=== PATIENT | female | born 1955 | race Caucasian/White ===

== ENCOUNTER 2019-02-14 18:40 | Emergency (ER) | payer OTHER ==
[~2019-02-14] VITALS: Wt 86.4 kg
[2019-02-14] MEDS ORDERED: SOD CHLORIDE 0.9% 1,000 ML IV STA (20:29)
[2019-02-14] MEDS ORDERED: ONDANSETRON 4 MG INJ IV STA (20:35)
[2019-02-14] MEDS ORDERED: morphine 4 MG/ML VIAL IV STA (20:35)
[2019-02-14] MEDS ORDERED: LOPE2CAP PO (23:06)
[2019-02-14] MEDS ORDERED: CIPR500T4 PO (23:06)
[2019-02-14 23:15] VITALS: BP 119/76; PULSE 80; RESP 20
--- NOTE | 2019-02-14 23:34 | ERD ---
ER Documentation Chief Complaint Chief Complaint DIARRHEA [id number] GENERALIZED WEAKNESS/DIZZINESS HPI Patient is a 63-year-old female with hypertension who presents for diarrhea. The patient was sent by Dr. Jess Kevin for diarrhea for the past 2 weeks. The patient is felt dizzy as well. The patient has diffuse abdominal pain which comes and goes. The patient has no fevers and no vomiting. The patient has had no recent travel. Upon review of old medical records this is the patient's first visit to the emergency department. ROS All systems reviewed and are negative except as per history of present illness. Medications Home Meds Active Scripts Loperamide Hcl* (Imodium*) 2 Mg Capsule, 2 MG PO .AFTER EA LOOSE BM PRN for DIARRHEA, #10 TAB Prov:LILIA GARCIA MD 02/14/19 Ciprofloxacin Hcl* (Ciprofloxacin Hcl*) 500 Mg Tablet, 500 MG PO BID for 7 Days, TAB Prov:LILIA GARCIA MD 02/14/19 Allergies Allergies: Coded Allergies: No Known Allergy (Unverified , 02/14/19) PMhx/Soc History of Surgery: Yes (, bilateral hands, bilateral knees) Hx Neurological Disorder: Yes (alzheimer's) Hx Cardiac Disorders: Yes (htn) Hx Miscellaneous Medical Probl: Yes (depression, anxiety) Hx Alcohol Use: No Hx Substance Use: No Hx Tobacco Use: No Smoking Status: Never smoker FmHx Family History: No diabetes Physical Exam Vitals Vital Signs Date Temp Pulse Resp B/P (MAP) Pulse Ox O2 O2 Flow FiO2 Time Delivery Rate 02/14/19 80 20 119/76 98 Room Air 23:15 (90) 02/14/19 97.7 55 20 126/73 96 19:01 (90) Physical Exam Const: No acute distress Head: Atraumatic Eyes: Normal Conjunctiva ENT: Normal External Ears, Nose and Mouth. Neck: Full range of motion. No meningismus. Resp: Clear to auscultation bilaterally Cardio: Regular rate and rhythm, no murmurs Abd: Soft, diffuse tenderness to palpation without rebound or guarding Skin: No petechiae or rashes Back: No midline or flank tenderness Ext: No cyanosis, or edema Neur: Awake and alert Psych: Normal Mood and Affect Result Diagram: 02/14/19203802/14/192038 Results 24 hrs Laboratory Tests Test 02/14/19 20:39 02/14/19 20:51 White Blood Count 7.3 10^3/ul Red Blood Count 4.39 10^6/ul Hemoglobin 13.0 g/dl Hematocrit 40.2 % Mean Corpuscular Volume 91.6 fl Mean Corpuscular Hemoglobin 29.6 pg Mean Corpuscular Hemoglobin Concent 32.3 g/dl Red Cell Distribution Width 12.4 % Platelet Count 250 10^3/UL Mean Platelet Volume 10.7 fl Immature Granulocytes % 0.300 % Neutrophils % 56.7 % Lymphocytes % 36.0 % Monocytes % 5.9 % Eosinophils % 1.0 % Basophils % 0.1 % Nucleated Red Blood Cells % 0.0 /100WBC Immature Granulocytes # 0.020 10^3/ul Neutrophils # 4.2 10^3/ul Lymphocytes # 2.6 10^3/ul Monocytes # 0.4 10^3/ul Eosinophils # 0.1 10^3/ul Basophils # 0.0 10^3/ul Nucleated Red Blood Cells # 0.0 10^3/ul Sodium Level 141 mmol/L Potassium Level 3.9 mmol/L Chloride Level 107 mmol/L Carbon Dioxide Level 29 mmol/L Anion Gap 5 Blood Urea Nitrogen 19 mg/dl Creatinine 0.73 mg/dl Est Glomerular Filtrat Rate mL/min > 60 mL/min Glucose Level 90 mg/dl Calcium Level 8.9 mg/dl Total Bilirubin 0.5 mg/dl Direct Bilirubin 0.00 mg/dl Indirect Bilirubin 0.5 mg/dl Aspartate Amino Transf (AST/SGOT) 30 IU/L Alanine Aminotransferase (ALT/SGPT) 37 IU/L Alkaline Phosphatase 154 IU/L Troponin I < 0.012 ng/ml Total Protein 7.5 g/dl Albumin 4.0 g/dl Globulin 3.50 g/dl Albumin/Globulin Ratio 1.14 Lipase 111 U/L Bedside Urine pH (LAB) 5.5 Bedside Urine Protein (LAB) 1+ Bedside Urine Glucose (UA) Negative Bedside Urine Ketones (LAB) Negative Bedside Urine Blood 1+ Bedside Urine Nitrite (LAB) Negative Bedside Urine Leukocyte Esterase (L 2+ Current Medications Medications Dose Sig/Meggan Start Time Status Last (Trade) Ordered Route PRN Stop Time Admin Dose Reason Admin Sodium 1,000 ml @ Q1H STAT 02/14/19 DC 02/14/19 Chloride 1,000 mls/hr IV 20:29 20:56 02/14/19 21:28 Morphine 4 mg ONCE STAT 02/14/19 DC 02/14/19 Sulfate IV 20:35 20:55 (morphine) 02/14/19 20:36 Ondansetron 4 mg ONCE STAT 02/14/19 DC 02/14/19 HCl (Zofran IV 20:35 20:55 Inj) 02/14/19 20:36 Procedures/MDM CT abdomen pelvis read by radiology. Patient is a 63-year-old female with hypertension who presents with diarrhea. The patient was found to have acute cystitis as well. CT scan shows no sign of surgical process at this time. I believe treatment with Cipro would be the best plan as if this patient has infectious diarrhea Cipro would be an appropriate course of treatment and will also treat the acute cystitis. I will also give the patient a prescription for Imodium for systematic relief. The patient can return for any worsening symptoms. I doubt appendicitis, cholecystitis, pancreatitis, or bowel obstruction. Departure Diagnosis: Primary Impression: Cystitis Additional Impression: Diarrhea Diarrhea type: unspecified type Qualified Codes: R19.7 - Diarrhea, unspecified Condition: Fair Patient Instructions: Self-Care for Vomiting and Diarrhea, Cystitis Additional Instructions: Llame al doctor MAANA y baltazar jackeline DERRICK PARA DENTRO DE 1-2 SOTO.Dgale a la secretaria que nosotros le instruimos hacer esta derrick.Avise o llame si cabrera condicin se empeora antes de la derrick. Regresa aqui si peor o no mejor. LILIA GARCIA MD February 14, 2019 23:34
== END 2019-02-14 23:18 | disposition home or self-care (01) ==
LOC: E/R 18:40
DX: R19.7 Diarrhea, unspecified (principal); N30.00 Acute cystitis without hematuria; I10 Essential (primary) hypertension; G30.9 Alzheimer's disease, unspecified
CPT/HCPCS: 74176; 80053; 81003; 83690; 84484; 85025; 93005; J2270; J2405; J7030; 36415; 96361; 96374; 96375

== ENCOUNTER 2019-06-12 12:50 | Emergency (ER) | payer OTHER ==
[~2019-06-12] VITALS: Ht 152.4 cm; Wt 88.7 kg
[~2019-06-12 12:50] MED LIST: CIPR500T4 PO; CLON0.5T4 PO; DONE5TAB46 PO; ESCI10TA48 PO; GABA300C16 PO; IBUP800T48 PO; LOPE2CAP PO; ONDA4TAB8 PO; TRAM50TA PO
[2019-06-12 13:10] VITALS: Ht 152.4 cm; Wt 88.7 kg
[2019-06-12] MEDS ORDERED: ONDANSETRON 4 MG INJ IV STA (14:51)
[2019-06-12] MEDS ORDERED: KETOROLAC 15 MG INJ IV STA ×2 (14:51→16:17)
[2019-06-12] MEDS ORDERED: SOD CHLORIDE 0.9% 1,000 ML IV STA (14:51)
[2019-06-12 17:00] VITALS: BP 118/71; PULSE 67; RESP 17
== END 2019-06-12 17:22 | disposition home or self-care (01) ==
LOC: E/R 12:50
DX: N20.0 Calculus of kidney (principal); G30.9 Alzheimer's disease, unspecified; I10 Essential (primary) hypertension
CPT/HCPCS: 36415; 71045; 74176; 80053; 81003; 83690; 85025; 96374; 96375; 96376; J1885; J2405; J7030; Z7502